=== PATIENT | male | born 1965 | race Caucasian/White ===

== ENCOUNTER 2020-11-17 09:58 | Emergency (ER) | payer OTHER ==
[~2020-11-17] VITALS: Ht 172.7 cm; Wt 70.3 kg
[2020-11-17 10:13] VITALS: BP_SYST 132
[2020-11-17] MEDS ORDERED: HYDR-3917 PO (11:45)
[2020-11-17] MEDS ORDERED: IBUP-1971 PO (11:45)
[2020-11-17 12:12] VITALS: BP_SYST 132
== END 2020-11-17 12:12 | disposition home or self-care (01) ==
LOC: SED 09:58
DX: S86.012A Strain of left Achilles tendon, initial encounter (principal); X50.1XXA Overexertion from prolonged static or awkward postures, initial encounter; Y93.89 Activity, other specified; Y92.89 Other specified places as the place of occurrence of the external cause; Y99.8 Other external cause status
CPT/HCPCS: 99283

== ENCOUNTER 2021-08-19 00:41 | Emergency (ER) | payer OTHER ==
[~2021-08-19] VITALS: Ht 165.1 cm; Wt 77.1 kg
[~2021-08-19 00:41] MED LIST: HYDR-3917 PO; IBUP-1971 PO
[2021-08-19 00:46] VITALS: BP_SYST 131
[2021-08-19] MEDS ORDERED: VANCOMYCIN HCL 1,000 MG in D5W 250 ML IV ONE (01:30)
[2021-08-19] MEDS ORDERED: NACL 0.9% 1,000 ML IV ONE (01:30)
[2021-08-19] MEDS ORDERED: AMOX1TAB14 PO (01:30)
[2021-08-19] MEDS ORDERED: KETOROLAC TROMETHAMINE 30 MG VIAL IVP ONE (01:30)
[2021-08-19] MEDS ORDERED: PIPERACILLIN/TAZO 3.38 GM in D5W 50 ML IV ONE (01:30)
[2021-08-19] MEDS ORDERED: SULF1TAB47 PO (01:31)
[2021-08-19] MEDS ORDERED: KETOROLAC TROMETHAMINE 30 MG VIAL ONE (01:32)
[2021-08-19] MEDS ORDERED: VANCOMYCIN HCL 1000 MG/VIAL IV ONE (01:33)
[2021-08-19] MEDS ORDERED: PIPERACILLIN/TAZOBACTAM 3.375 GM/VIAL (ZOSYN) IV ONE (01:33)
[2021-08-19 04:13] VITALS: BP_SYST 134
[2021-08-19 07:12] LABS: POTASSIUM 4.3 mmol/L (3.5-5.1)
[2021-08-19 07:13] LABS: ALBUMIN 3.5 g/dL (3.4-4.8); CREATININE 0.88 mg/dL (0.55-1.30); TOTAL BILIRUBIN 0.2 mg/dL (0.0-1.0)
[2021-08-19 07:30] LABS: HEMATOCRIT 40.3 % (36-54); MEAN CORPUSCULAR HEMOGLOBIN 30 pg (27-31); MEAN CORPUSCULAR HGB CONC 35 % (32-36); MEAN CORPUSCULAR VOLUME 86 fL (79.0-98.0); RED CELL DISTRIBUTION WIDTH 13.7 % (9.0-15.0); WHITE BLOOD COUNT (AUTO) 10.1 K/uL (4.8-10.8)
[2021-08-19 07:31] LABS: BASOPHILS % (AUTO) 0.5 % (0.0-2.0); EOSINOPHILS # (AUTO) 0.3 K/uL (0.0-0.4); EOSINOPHILS % (AUTO) 2.8 % (0.0-4.0); LYMPHOCYTES # (AUTO) 1.2 K/uL (1.0-5.5); LYMPHOCYTES % (AUTO) 11.6 % (20.5-51.5); MONOCYTES # (AUTO) 0.7 K/uL (0.0-1.0); MONOCYTES % (AUTO) 7.2 % (1.7-9.3); NEUTROPHILS # (AUTO) 7.9 K/uL (1.8-7.7); NEUTROPHILS % (AUTO) 77.9 % (40.0-70.0); PLATELET COUNT (AUTO) 238 K/uL (130-430)
[2021-08-19 08:00] LABS: C-REACTIVE PROTEIN QUANT 5.1 mg/dL (0-0.5)
[2021-08-19 08:11] LABS: ERYTHROCYTE SEDIMENTATION RATE 45 MM/HR (0-15)
== END 2021-08-19 04:12 | disposition home or self-care (01) ==
LOC: SED 00:41
DX: L02.413 Cutaneous abscess of right upper limb (principal); L03.113 Cellulitis of right upper limb; Z79.899 Other long term (current) drug therapy
CPT/HCPCS: 10060; 36415; 71045; 73090; 80053; 83605; 85025; 85651; 86140; 87040; 87070; 87075; 87186; 96365; 96368; 96375; 99284; J1885; J2543; J3370